=== PATIENT | female | born 1930 | race African-American/Black ===

== ENCOUNTER 2018-11-17 13:49 | Inpatient (IN) | payer MEDICARE ==
[~2018-11-17] VITALS: Ht 144.8 cm; Wt 47.6 kg
[2018-11-17 14:05] VITALS: BP 168/58
--- NOTE | 2018-11-17 14:19 | NUR ---
BROUGHT IN BY EMS FROM HOME---PT'S SON CALLED 911 AFTER AIDING MOTHER TO THE GROUND POSSIBLE NEAR SYNCOPE----PT HAD RETURNED FROM A WALK AND WAS ATTEMPTING TO SIT. PT HAS A HX OF HTN, THYROID, AND DEMENTIA----DENIES HEADACHE DENIES SOB DENIES CP DENIES DIZZINESS AT THIS TIME---FULL CLEAR SPEECH, MOVING ALL EXTREMITIES EQUALLY, NO FACIAL ASYMMETRY DENIES RECENT INJURY OR FALL
[2018-11-17 14:48] LABS: BASOPHILS % (AUTO) 0.8 % (0.0-2.0); EOSINOPHILS % (AUTO) 0.3 % (0.0-4.0); HEMATOCRIT 31.2 % (36-48); HEMOGLOBIN 10.3 g/dL (12.0-16.0); LYMPHOCYTES # (AUTO) 1.3 K/uL (2.5-16.5); LYMPHOCYTES % (AUTO) 25.4 % (20.5-51.1); MEAN CORPUSCULAR HEMOGLOBIN 25 pg (27-31); MEAN CORPUSCULAR HGB CONC 33 g/dL (33-37); MEAN CORPUSCULAR VOLUME 75.2 fL (80-94); MONOCYTES # (AUTO) 0.4 K/uL (0.8-1.0); NEUTROPHILS # (AUTO) 3.5 K/uL (1.8-7.7); NEUTROPHILS % (AUTO) 65.5 % (42.2-75.2); PLATELET COUNT (AUTO) 153 K/uL (140-450); RED BLOOD CELL COUNT(AUTO) 4.15 MIL/uL (4.20-5.40); WHITE BLOOD COUNT (AUTO) 5.3 K/uL (4.8-10.8)
[2018-11-17 15:06] LABS: PROTHROMBIN TIME 10.2 secs (10.8-13.4)
[2018-11-17 15:07] LABS: ALBUMIN 3.2 g/dL (3.4-5.0); ANION GAP 9.8 (8-16); ASPARTATE AMINOTRANSFERASE 17 U/L (15-37); CARBON DIOXIDE 30.1 mmol/L (21-32); CHLORIDE 110 mmol/L (98-107); CREATININE 1.4 mg/dL (0.6-1.3); GLUCOSE 81 mg/dL (74-106); SODIUM SERUM 147 mmol/L (136-145); TOTAL BILIRUBIN 0.3 mg/dL (0.0-1.0); UREA NITROGEN, BLOOD 17 mg/dL (7-18)
[2018-11-17] MEDS ORDERED: ONDANSETRON 4 MG/2 ML VIAL IVP ONE (15:10)
[2018-11-17 15:19] LABS: POTASSIUM 2.9 mmol/L (3.5-5.1)
[2018-11-17] MEDS ORDERED: MAG SULF 2000 MG/WATER PREMIX 50 ML IV ONE (15:25)
[2018-11-17] MEDS ORDERED: KCL 20 MEQ/WATER INJ PREMIX 100 ML IV ONE (15:25)
--- NOTE | 2018-11-17 15:37 | NUR ---
pt went to ct with hog grader on bed.
--- NOTE | 2018-11-17 15:45 | NUR ---
RETURNED FROM CT VIA [facility]
[2018-11-17 15:51] LABS: APPEARANCE,URINE SL CLOUDY (CLEAR); BILIRUBIN,URINE NEGATIVE (NEGATIVE); BLOOD, URINE 3+ (NEGATIVE); COLOR,URINE YELLOW (YELLOW); LEUKOCYTE ESTERASE ,URINE TRACE (NEGATIVE); NITRITE, URINE POSITIVE (NEGATIVE); UGLUCOSE NEGATIVE (NEGATIVE)
[2018-11-17 16:32] LABS: RBC,URINE >20 (MANY) /HPF (0-5)
--- NOTE | 2018-11-17 16:32 | NUR ---
VS TAKEN AT THE BEDSIDE, BP 199/95. PER PT SON, PT TAKES AMLODIPINE AT HOME DAILY, GAVE HER HOME MEDS. WILL CONTINUE TO ALEKSANDR PT.
[2018-11-17] MEDS ORDERED: PIPERACILLIN/TAZOBACTAM 3.375 GM in DEXTROSE 5% 50 ML IV ONE (17:30)
--- NOTE | 2018-11-17 19:20 | NUR ---
RECEIVED REPORT FROM AM NURSE. PT LAYING IN BED, CAREGIVER AT BEDSIDE. VS NOTED, RR EVEN AND UNLABORED. DENIES ANY PAIN AT THIS TIME. ALL NEEDS MET.
--- NOTE | 2018-11-17 19:25 | NUR ---
DR PRIDE MADE AWARE OF D-DIMER 3030, PT WITH NO CP OR SOB, SKIN NORMAL WARM AND DRY.
[2018-11-17] MEDS ORDERED: ONDANSETRON 4 MG/2 ML VIAL IVP PRN (20:00)
[2018-11-17] MEDS ORDERED: AMLO2.5T PO (20:11)
[2018-11-17] MEDS ORDERED: LEVO0.083 PO (20:11)
--- NOTE | 2018-11-17 21:00 | NUR ---
PT LAYING IN BED, CAREGIVER AT BEDSIDE. VS NOTED, RR EVEN AND UNLABORED. DENIES ANY PAIN AT THIS TIME. ALL NEEDS MET.
[2018-11-17] MEDS ORDERED: PIPERACILLIN/TAZOBACTAM 3.375 GM VIAL IV ONE (21:04)
--- NOTE | 2018-11-17 21:05 | NUR ---
Patient will be admitted to care of DR. WILCOX. Admited to TELE. Will go to room 121B. Belongings list completed. Report to SALLY MARINA.
[2018-11-17 21:20] VITALS: BP 184/86
--- NOTE | 2018-11-17 21:20 | NUR ---
RECEIVED PT FROM ER VIA IFTIKHAR PT AAOX2 COOPERATIVE TO FOLLOW COMMANDS ON TELEMETRY SB IV ON LEFT WRIST GAUGE #24 INFUSING POTASSIUM RELATIVES AT BED SIDE SKIN IS INTACT, MRSA NARES TAKEN AND SENT TO LAB PT AND RELTIVES ARE ORIENTED TO THE FLOOR CALL LIGHT WITHIN REACH
[2018-11-17] MEDS ORDERED: hydrALAZINE 20 MG/ML VIAL IVP PRN (22:40)
--- NOTE | 2018-11-17 22:54 | NUR ---
DR WILCOX GIVE ORDER TO FOLLOW
--- NOTE | 2018-11-17 23:00 | NUR ---
PT IS ASSITED TO USED BSC VOIDING WELL ON TELEMETRY SB
--- NOTE | 2018-11-17 23:06 | NUR ---
AT 2306 HYDRALAZINE 1O MG IVP GIVENAS ORDER FOR HIGH BP 184/86 PT WILL BE MONITORING CLOSE
--- NOTE | 2018-11-17 23:45 | NUR ---
ROCEPHIN 1 GRAMS IVPB INFUSING ORDER,
--- NOTE | 2018-11-17 23:46 | NUR ---
AT 2345 ROCEPHIN N 1 GRAM WAS INFUSING ORDER
[2018-11-18] VITALS: BP 120/50
--- NOTE | 2018-11-18 | NUR ---
PT SLEEPING ON TELEMETRY SB REPOSITIONED Q2H
[2018-11-18] MEDS ORDERED: cefTRIAXone 1,000 MG VIAL ONE (00:05)
--- NOTE | 2018-11-18 02:00 | NUR ---
PT IS ASSISTED TO USED BSC VOIDING WELL NOT DISTRESS NOTED, COOPERATIVE TO FOLLOW COMMANDS
[2018-11-18 04:00] VITALS: BP 144/67
--- NOTE | 2018-11-18 04:00 | NUR ---
SPONGE BATH GIVEN LINEN CHANGED REPOSITIONED ON TELEMETRYSR NOT DISTRESS NOTEED PT FORGETFUL
[2018-11-18 06:40] LABS: ANION GAP 11.9 (8-16); ASPARTATE AMINOTRANSFERASE 15 U/L (15-37); CARBON DIOXIDE 27.3 mmol/L (21-32); CHLORIDE 106 mmol/L (98-107); CREATININE 1.6 mg/dL (0.6-1.3); GLUCOSE 102 mg/dL (74-106); POTASSIUM 3.2 mmol/L (3.5-5.1); SODIUM SERUM 142 mmol/L (136-145); TOTAL BILIRUBIN 0.4 mg/dL (0.0-1.0); UREA NITROGEN, BLOOD 17 mg/dL (7-18)
--- NOTE | 2018-11-18 06:44 | NUR ---
PT VERBALIZED NEEDED, FOLOW COMMANDS NOT DISTRESS NOTED ON TELE SR PT WILL BE ENDORSED TO DAY SGIF NURSE FOR CONTINUITY OF CARE
[2018-11-18 07:00] LABS: BASOPHILS % (AUTO) 0.4 % (0.0-2.0); HEMOGLOBIN 10.4 g/dL (12.0-16.0); LYMPHOCYTES % (AUTO) 16.4 % (20.5-51.1); MEAN CORPUSCULAR HEMOGLOBIN 25 pg (27-31); MEAN CORPUSCULAR HGB CONC 34 g/dL (33-37); MEAN CORPUSCULAR VOLUME 75.5 fL (80-94); MONOCYTES # (AUTO) 0.5 K/uL (0.8-1.0); MONOCYTES % (AUTO) 8.2 % (1.7-9.3); NEUTROPHILS # (AUTO) 4.4 K/uL (1.8-7.7); PLATELET COUNT (AUTO) 148 K/uL (140-450); RED BLOOD CELL COUNT(AUTO) 4.11 MIL/uL (4.20-5.40); RED CELL DISTRIBUTION WIDTH 19.6 % (11.6-13.7); WHITE BLOOD COUNT (AUTO) 5.8 K/uL (4.8-10.8)
--- NOTE | 2018-11-18 07:30 | NUR ---
RECEIVED PT AAOX2, CONFUSED. NO SOB NOTED. NO C/O PAIN AT THIS TIME. IV TO LT HAND PATENT AND INTACT. CHEST CLEAR. ABDOMEN SOFT, BOWEL SOUNDS PRESENT. NO EDEMA NOTED. INSTRUCTED PT TO CALL FOR ASSISTANCE, CALL LIGHT WITHIN REACH. PT PARTIAL VERBALIZED UNDERSTANDING. PT'S DAUGHTER AT THE BEDSIDE.
[2018-11-18 08:00] VITALS: BP 132/67
--- NOTE | 2018-11-18 08:19 | NUR ---
PATIENT HAS BEEN SCREENED AND CATEGORIZED MODERATE NUTRITION RISK. PATIENT WILL BE SEEN WITHIN 3-5 DAYS OF ADMISSION. 11/20/18MARCELLO [address]ALKER RD
[2018-11-18] MEDS: POTASSIUM CHLORIDE 10 MEQ TABER PO SCH ×3 (09:00→10:14)
--- NOTE | 2018-11-18 09:00 | NUR ---
PT CONSUMED 45% OF BREAKFAST SERVED FED BY DAUGHTER. PT NEEDS MORE ENCOURAGEMENT ON EATING HER MEALS.
[2018-11-18] MEDS: LEVOTHYROXINE 0.088 MG TAB PO SCH (10:04)
[2018-11-18] MEDS: amLODIPine 5 MG TAB PO SCH (10:06)
[2018-11-18] MEDS ORDERED: POTASSIUM CHLORIDE 20% 40 MEQ/15 ML UDC PO SCH (10:30)
[2018-11-18 12:00] VITALS: BP 132/59
--- NOTE | 2018-11-18 13:55 | NUR ---
PT SLEEPING. NO SOB NOTED. NO SIGNS OF PAIN.
[2018-11-18 16:00] VITALS: BP 161/74
--- NOTE | 2018-11-18 16:00 | NUR ---
LATEST BP : 161/74 MMHG, HR: 58/MIN. PT ASYMPTOMATIC OF ELEVATED BP. NO SOB NOTED. NO COMPLAINTS MADE. PT'S FAMILY AT THE BEDSIDE. PER DAUGHTER, SHE DOES NOT WANT HER MOTHER TO HAVE THE HYDRALAZINE IV THAT TIMBER FRAMER HELPER GAVE LAST NIGHT. WILL INFORM DR. ESTEVES.
--- NOTE | 2018-11-18 17:14 | NUR ---
DR. ESTEVES CAME TO SEE PT WITH NEW ORDERS.
--- NOTE | 2018-11-18 17:59 | NUR ---
ultrasound of the kidneys on going at the bedside.
--- NOTE | 2018-11-18 18:30 | NUR ---
PT CONSUMED 60% OF DINNER SERVED, FOOD TOLERATED WELL.
--- NOTE | 2018-11-18 19:09 | NUR ---
PT AWAKE, TALKING TO HER DAUGHTER AT THE BEDSIDE. NO SOB NOTED. NO COMPLAINTS MADE. ENDORSED TO NEXT SHIFT NURSE FOR CONTINUITY OF CARE.
--- NOTE | 2018-11-18 19:15 | NUR ---
RECEIVED PT FROM WERNER RN PT IS AAOX2 ON BED REST HL ON LEFT WRIST PATENT , ON TELEMETRY SR NOT DISTRESS NTED RELATIVES AT BED SIDE INITIAL ASSESSMENT DONE
[2018-11-18 20:00] VITALS: BP 126/75
--- NOTE | 2018-11-18 21:00 | NUR ---
PT AWAKE COOPERATIVE , AMBULATES TO THE RESTROOM VOIDING WELL, WITH MARKETING TEAM LEAD, ON TELEMETRY SR
--- NOTE | 2018-11-18 23:28 | NUR ---
PT ON BED SLEEPING ON TELMETRY NOT SIGNS OF DISTRESS NOTED REPOSITIONED Q2H
[2018-11-19] VITALS: BP 204/81
[2018-11-19] MEDS: hydrALAZINE 20 MG/ML VIAL IVP PRN ×3 (00:14→23:39)
--- NOTE | 2018-11-19 00:30 | NUR ---
PT IS ASSISTED TO USED BSC NOT DISTRESS NOTED COOPERATIVE MORE alert
--- NOTE | 2018-11-19 01:00 | NUR ---
PT RESTING ON BED DENIES ANY PAIN ON TEEMETRY SB, REPOSITIONED Q2H
[2018-11-19 04:00] VITALS: BP 150/60
--- NOTE | 2018-11-19 04:00 | NUR ---
SPONGE BATH GIVEN LINEN CHANGED NOT DISTRESS NOTED REPOSITIONED Q2H ON TELEMETRY SB
[2018-11-19] MEDS: LEVOTHYROXINE 0.088 MG TAB PO SCH (06:04)
--- NOTE | 2018-11-19 06:21 | NUR ---
PT SLEEPING ON TELEMETRY SB REMAINSTABLE AT THIS TIME NOT SIGNS OF PAIN,PT WILL BE ENDORSED TO DAY SHIFT NURSE FOR CONTINUITY OF CARE
[2018-11-19 06:28] LABS: BASOPHILS % (AUTO) 0.6 % (0.0-2.0); EOSINOPHILS % (AUTO) 0.9 % (0.0-4.0); HEMATOCRIT 29.9 % (36-48); HEMOGLOBIN 9.9 g/dL (12.0-16.0); LYMPHOCYTES # (AUTO) 1.5 K/uL (2.5-16.5); LYMPHOCYTES % (AUTO) 27.6 % (20.5-51.1); MEAN CORPUSCULAR HEMOGLOBIN 25 pg (27-31); MEAN CORPUSCULAR HGB CONC 33 g/dL (33-37); MEAN CORPUSCULAR VOLUME 74.9 fL (80-94); MONOCYTES # (AUTO) 0.5 K/uL (0.8-1.0); MONOCYTES % (AUTO) 8.8 % (1.7-9.3); NEUTROPHILS # (AUTO) 3.3 K/uL (1.8-7.7); NEUTROPHILS % (AUTO) 62.1 % (42.2-75.2); PLATELET COUNT (AUTO) 146 K/uL (140-450); RED BLOOD CELL COUNT(AUTO) 3.99 MIL/uL (4.20-5.40); WHITE BLOOD COUNT (AUTO) 5.3 K/uL (4.8-10.8)
[2018-11-19 06:33] LABS: ANION GAP 10.8 (8-16); CARBON DIOXIDE 26.8 mmol/L (21-32); CHLORIDE 107 mmol/L (98-107); CREATININE 1.6 mg/dL (0.6-1.3); GLUCOSE 80 mg/dL (74-106); POTASSIUM 3.6 mmol/L (3.5-5.1); SODIUM SERUM 141 mmol/L (136-145); UREA NITROGEN, BLOOD 19 mg/dL (7-18)
[2018-11-19 06:38] LABS: PHOSPHORUS 3.4 mg/dL (2.5-4.9)
[2018-11-19 06:54] LABS: FREE T4 (FREE THYROXINE) 0.84 ng/dL (0.76-1.46); THYROID STIMULATING HORMONE 43.6 uIU/mL (0.34-3.74)
--- NOTE | 2018-11-19 07:21 | NUR ---
RECEIVED PT AAOX2, CONFUSED. NO SOB NOTED. NO C/O PAIN AT THIS TIME. IV TO LEFT HAND 24G PATENT AND INTACT, CURRENTLY SALINE LOCKED. LUNG SOUNDS CLEAR. ABDOMEN SOFT, BOWEL SOUNDS PRESENT. NO EDEMA NOTED. INSTRUCTED PT TO CALL FOR ASSISTANCE, CALL LIGHT WITHIN REACH. BEDSIDE COMMODE AT PT BEDSIDE. DISCUSSED POC WITH PT AND ORIENTED PT TO ENVIRONMENT. PT PARTIAL VERBALIZED UNDERSTANDING BUT REINFORCEMENT IS NEEDED. WILL MONITOR PT CLOSELY. BED IN LOW POSITION, CALL LIGHT WITHIN REACH.
[2018-11-19 08:00] VITALS: BP 135/74
--- NOTE | 2018-11-19 09:47 | NUR ---
ADMINISTERED MORNING MEDS TO PT. PT TOLERATED THEM WELL. PT DENIES PAIN OR DISTRESS. WILL CONTINUE TO ROUND FREQUENTLY. BED IN LOWEST POSITION, CALL LIGHT WITHIN REACH.
[2018-11-19] MEDS: amLODIPine 5 MG TAB PO SCH (09:48)
--- NOTE | 2018-11-19 11:57 | NUR ---
PT SITTING IN BED WATCHING TV. ALL NEEDS CURRENTLY MET. NO DISTRESS OR PAIN NOTED. WILL CONTINUE TO ROUND FREQUENTLY ON PT.
[2018-11-19 12:00] VITALS: BP 142/72
--- NOTE | 2018-11-19 13:45 | NUR ---
PT SITTING AT EDGE OF BED. FAMILY AT BEDSIDE. PT DENIES PAIN OR ANY DISTRESS. WILL CONTINUE TO ROUND FREQUENTLY ON PT. BED IN LOWEST POSITION, CALL LIGHT WITHIN REACH.
--- NOTE | 2018-11-19 15:20 | NUR ---
PT RESTING IN BED WITH DAUGHTER AND GRANDDAUGHTER AT BEDSIDE. ALL NEEDS CURRENTLY MET. WILL CONTINUE TO ROUND FREQUENTLY ON PT.
[2018-11-19 16:00] VITALS: BP 167/73
--- NOTE | 2018-11-19 17:56 | NUR ---
PT WITH FAMILY AT BEDSIDE. ALL NEEDS CURRENTLY MET. WILL ROUND FREQUENTLY ON PT.
--- NOTE | 2018-11-19 19:10 | NUR ---
RECEIVED BEDSIDE REPORT FROM DAY SHIFT NURSE. PATIENT IS AWAKE, ALERT,AND COOPERATIVE. FAMILY AT BEDSIDE. RESPIRATION EVEN UNLABORED ON ROOM AIR. SKIN IS WARM AND DRY. DENIES PAIN. IV PATENT AND INTACT. PLAN OF CARE WAS DISCUSSED. ALL SAFETY MEASURES IN PLACE. BED IS AT LOW POSITION. BEDSIDE COMMODE WITHIN REACH. CALL LIGHT WITHIN REACH AND INSTRUCTED PATIENT TO CALL FOR ASSISTANCE. WILL CONTINUE TO MONITOR.
--- NOTE | 2018-11-19 19:27 | NUR ---
ENDORSED PT TO NETWORK ENGINEER FOR CONTINUITY OF CARE. PT IN STABLE CONDITION AT THIS TIME.
[2018-11-19 20:00] VITALS: BP 124/66
--- NOTE | 2018-11-19 20:00 | NUR ---
INITIAL ASSESSMENT DONE. VITALS WERE TAKEN. PATIENT IS IN STABLE CONDITION. WILL CONTINUE TO MONITOR
--- NOTE | 2018-11-19 22:00 | NUR ---
PATIENT IN BED SLEEPING RESPIRATION EVEN UNLABORED ON ROOM AIR. NO DISTRESS NOTED. WILL CONTINUE TO MONITOR
--- NOTE | 2018-11-19 23:39 | NUR ---
CHECKED PATIENT BP. PT BP 164/70 HR 65 PRN HYDRALAZINE ADMINISTERED PER ORDER. WILL CONTINUE TO MONITOR
[2018-11-20] VITALS: BP 164/70
--- NOTE | 2018-11-20 | NUR ---
VITALS WERE TAKEN. PATIENT IS IN STABLE CONDITION. NO DISTRESS NOTED. WILL CONTINUE TO MONITOR.
--- NOTE | 2018-11-20 00:35 | NUR ---
RECHECKED BP. PT BP 144/57 HR 75 NO DISTRESS NOTED. WILL CONTINUE TO MONITOR
--- NOTE | 2018-11-20 02:00 | NUR ---
CHECKED PATIENT. PATIENT SLEEPING RESPIRATION EVEN UNLABORED ON ROOM AIR. NO DISTRESS NOTED. WILL CONTINUE TO MONITOR
[2018-11-20 04:00] VITALS: BP 153/63
--- NOTE | 2018-11-20 04:00 | NUR ---
VITALS WERE TAKEN. PATIENT CONDITION IS STABLE. NO DISTRESS NOTED. WILL CONTINUE TO MONITOR
[2018-11-20 06:04] LABS: MAGNESIUM 2.1 mg/dL (1.8-2.4); PHOSPHORUS 3.9 mg/dL (2.5-4.9)
[2018-11-20 06:10] LABS: ANION GAP 13.2 (8-16); CARBON DIOXIDE 23.3 mmol/L (21-32); CHLORIDE 105 mmol/L (98-107); CREATININE 1.6 mg/dL (0.6-1.3); GLUCOSE 91 mg/dL (74-106); POTASSIUM 3.5 mmol/L (3.5-5.1); SODIUM SERUM 138 mmol/L (136-145); UREA NITROGEN, BLOOD 25 mg/dL (7-18)
[2018-11-20] MEDS: LEVOTHYROXINE 0.088 MG TAB PO SCH (06:21)
[2018-11-20 06:41] LABS: BASOPHILS % (AUTO) 0.6 % (0.0-2.0); EOSINOPHILS % (AUTO) 0.7 % (0.0-4.0); HEMATOCRIT 28.6 % (36-48); HEMOGLOBIN 9.6 g/dL (12.0-16.0); LYMPHOCYTES # (AUTO) 1.1 K/uL (2.5-16.5); LYMPHOCYTES % (AUTO) 20.5 % (20.5-51.1); MEAN CORPUSCULAR HEMOGLOBIN 25 pg (27-31); MEAN CORPUSCULAR HGB CONC 34 g/dL (33-37); MEAN CORPUSCULAR VOLUME 74.8 fL (80-94); MONOCYTES # (AUTO) 0.4 K/uL (0.8-1.0); NEUTROPHILS # (AUTO) 3.9 K/uL (1.8-7.7); NEUTROPHILS % (AUTO) 70.2 % (42.2-75.2); PLATELET COUNT (AUTO) 158 K/uL (140-450); RED BLOOD CELL COUNT(AUTO) 3.82 MIL/uL (4.20-5.40); RED CELL DISTRIBUTION WIDTH 19.2 % (11.6-13.7); WHITE BLOOD COUNT (AUTO) 5.6 K/uL (4.8-10.8)
--- NOTE | 2018-11-20 07:27 | NUR ---
ENDORSED PATIENT TO DAY SHIFT NURSE FOR CONTINUITY OF CARE. PATIENT IS IN STABLE CONDITION.
--- NOTE | 2018-11-20 07:29 | NUR ---
REPORT RECEIVED FROM ORGANIC SEARCH LEAD NURSE, PT AROUSES EASILY OX1, RESP EVEN UNLABORED, SKIN WARM DRY COLOR WNL, DENIES SOB, DENIES PAIN, POC REVIEWED, DENIES ANY IMMEDIATE NEEDS, ALL SAFETY MEASURES IN PLACE, WILL CONTINUE TO MONITOR
[2018-11-20 08:00] VITALS: BP 145/55
[2018-11-20] MEDS: amLODIPine 5 MG TAB PO SCH (09:13)
--- NOTE | 2018-11-20 09:24 | NUR ---
AM MED GIVEN, PT CATHERINE PILL WELL, PT ASSISTED UP TO BEDSIDE COMMODE.
--- NOTE | 2018-11-20 10:18 | NUR ---
PT SITTING UP IN CHAIR EATING BREAKFAST.
--- NOTE | 2018-11-20 11:22 | NUR ---
SON, ABBIE KENNEDY AT BEDSIDE, POC DISCUSSED, PECAN SHELLER MARCELLO CALLED FOR HYPOKALEMIA EDUCATION REQUESTED BY SON.
[2018-11-20 12:00] VITALS: BP 112/55
--- NOTE | 2018-11-20 12:09 | NUR ---
MANAGER CCU AT BEDSIDE TALKING WITH SON.
--- NOTE | 2018-11-20 14:09 | NUR ---
PT SITTING UP IN CHAIR IN NO ACUTE DISTRESS, AWAITING DISPOSITION FROM MD.
[2018-11-20] MEDS ORDERED: CIPR250T6 PO (14:15)
--- NOTE | 2018-11-20 14:49 | NUR ---
11/20/18 RD INITIAL ASSESSMENT COMPLETED PLEASE REFER TO NUTRITION ASSESSMENT UNDER CARE ACTIVITY FOR ESTIMATED NUTRITIONAL NEEDS. 1. CONTINUE CARDIAC DIET 2. CONTINUE ENSURE BID 3. EDUCATION ON POTASSIUM INTAKE WAS PROVIDED 4. RD TO FOLLOW-UP 5-7 DAYS, LOW RISK MARCELLO WALKER, RD
--- NOTE | 2018-11-20 16:10 | NUR ---
IV DC'D, CATH TIP INTACT, BLEEDING CONTROLLED, PT CATHERINE WELL, DC INSTRUCTION GIVEN AND EXPLAINED TO PT'S SON ABBIE, HE VERBALIZED FULL UNDERSTANDING, MINIMAL ASSIST NEED FOR CHANGING CLOTHES. ESCORTED OUT TO CAR IN WHEELCHAIR BY HOME DESIGNER. DC HOME WITH SON.
== END 2018-11-20 16:10 | disposition home or self-care (01) | DRG 690 ==
LOC: MED 13:49 → MTU 20:02 → OBSVTOIN 11-18 17:01
PROVIDERS: ADMIT Internal Medicine; ATTEND Internal Medicine
DX: N39.0 Urinary tract infection, site not specified (principal); E87.0 Hyperosmolality and hypernatremia; N17.9 Acute kidney failure, unspecified; E44.1 Mild protein-calorie malnutrition; E87.6 Hypokalemia; E03.9 Hypothyroidism, unspecified; E86.9 Volume depletion, unspecified; I12.9 Hypertensive chronic kidney disease with stage 1 through stage 4 chronic kidney disease, or unspecified chronic kidney disease; N18.9 Chronic kidney disease, unspecified; F03.90 Unspecified dementia, unspecified severity, without behavioral disturbance, psychotic disturbance, mood disturbance, and anxiety; E87.8 Other disorders of electrolyte and fluid balance, not elsewhere classified; Z68.22 Body mass index [BMI] 22.0-22.9, adult
CPT/HCPCS: 96365; 96367; 96368; 96375; 99285; G0378; 36415; 70450; 71045; 76770; 80048; 80053; 81001; 83735; 84100; 84439; 84443; 84484; 85025; 85379; 85610; 87081; 87086; 87186; 93005; 97116; 97161-GP; 97530; C1758; J0360; J0696; J2405; J2543; J3475; J3480; J7030; J7060; Q0092